=== PATIENT | female | born 1995 | race African-American/Black ===

== ENCOUNTER 2024-03-10 18:27 | Emergency (ER) | payer MEDICAID, OTHER ==
[~2024-03-10] VITALS: Ht 157.5 cm; Wt 50.0 kg
[2024-03-10 18:35] VITALS: O2SAT 98
[2024-03-10] MEDS: ACETAMINOPHEN 325MG TABLET PO ONE (19:07)
[2024-03-10 23:00] VITALS: BP 118/69; PULSE 71; RESP 16; TEMP 36.50292; O2SAT 100
[2024-03-10] MEDS ORDERED: TOPUD PO (23:01)
== END 2024-03-11 01:30 | disposition home or self-care (01) ==
LOC: ER 18:27
DX: S02.2XXA Fracture of nasal bones, initial encounter for closed fracture (principal); F12.10 Cannabis abuse, uncomplicated; Y04.0XXA Assault by unarmed brawl or fight, initial encounter; Y93.89 Activity, other specified; Y92.89 Other specified places as the place of occurrence of the external cause; Y99.8 Other external cause status
CPT/HCPCS: 70486; 99284